=== PATIENT | female | born 1970 | race Caucasian/White ===

== ENCOUNTER 2021-09-16 19:53 | Emergency (ER) | payer OTHER ==
[~2021-09-16] VITALS: Ht 157.5 cm; Wt 55.0 kg
[2021-09-16] MEDS ORDERED: AMLODIPINE 5MG TABLET PO ONE (21:15)
[2021-09-16] MEDS ORDERED: IBUPROFEN 600MG TABLET PO ONE (21:15)
[2021-09-16 21:40] LABS: BASOPHILS % 1.1 % (0.0-2.0); EOSINOPHILS % 2.7 % (0.0-5.0); HEMATOCRIT. 40.5 % (36.0-48.0); HEMOGLOBIN. 14.2 g/dL (12.0-16.0); LYMPHOCYTES % 27.7 % (20.0-50.0); MEAN CORPUSCULAR HEMOGLOBIN 30.5 pg (28.0-32.0); MEAN PLATELET VOLUME 9.8 fl (7.4-10.4); MONOCYTES % 6.7 % (2.0-8.0); NEUTROPHILS % 61.8 % (40.0-76.0); PLATELET 224 x1000/uL (130-400); RED BLOOD CELL COUNT 4.66 mill/uL (4.2-5.4); RED CELL DISTRIBUTION WIDTH 13.4 % (11.6-14.6)
[2021-09-16 21:43] LABS: CHLORIDE 112 mEq/L (98-107)
[2021-09-16 21:48] LABS: HCG SCREEN NEGATIVE
[2021-09-16] MEDS ORDERED: AMLO5TAB4 MT (23:22)
[2021-09-16] MEDS ORDERED: IBUP-2029 MT (23:22)
[2021-09-16 23:45] VITALS: BP 168/109
== END 2021-09-17 | disposition home or self-care (01) ==
LOC: ER 19:53
DX: S20.212A Contusion of left front wall of thorax, initial encounter (principal); I10 Essential (primary) hypertension; V49.49XA Driver injured in collision with other motor vehicles in traffic accident, initial encounter; Y93.89 Activity, other specified; Y92.89 Other specified places as the place of occurrence of the external cause; Y99.8 Other external cause status; I16.0 Hypertensive urgency
CPT/HCPCS: 36415; 71250; 80053; 84703; 85025; 93005; 99285